=== PATIENT | female | born 1945 | race Two or more races ===

== ENCOUNTER 2025-02-27 14:39 | Emergency (ER) | payer OTHER ==
[~2025-02-27] VITALS: Ht 162.6 cm; Wt 56.7 kg
[2025-02-27] MEDS ORDERED: ANASTROZOLE1 MG (15:22)
[2025-02-27] MEDS ORDERED: REPATHA SU140 MG/1 M (15:22)
[2025-02-27] MEDS ORDERED: ZETIA10 MG (15:23)
[2025-02-27] MEDS ORDERED: INDERAL LA80 MG (15:23)
[2025-02-27] MEDS ORDERED: INDERAL LA120 MG (15:23)
[2025-02-27] MEDS ORDERED: CHILDREN'S ASPI81 MG (15:23)
[2025-02-27] MEDS ORDERED: ENALAPRILAT DIHYDRATE 1.25 MG/ML VIAL IV ONE ×2 (15:59→16:00)
== END 2025-02-27 21:05 | disposition home or self-care (01) ==
LOC: ER 14:40
DX: I10 Essential (primary) hypertension (principal); Z88.0 Allergy status to penicillin; Z85.3 Personal history of malignant neoplasm of breast; E78.49 Other hyperlipidemia; H11.32 Conjunctival hemorrhage, left eye
CPT/HCPCS: 70450; 96365; 99284; J3490